=== PATIENT | female | born 1980 | race Caucasian/White ===

== ENCOUNTER → 2024-01-06 16:42 | Outpatient (REF) | payer OTHER, SELFPAY | LOC: WDC 16:42 | PROVIDERS: ATTENDING PHYSICIAN Obstetrics & Gynecology; FAMILY PHYSICIAN Family Medicine | DX: Z12.31 Encounter for screening mammogram for malignant neoplasm of breast (principal); Z80.3 Family history of malignant neoplasm of breast | CPT/HCPCS: 77063; 77067 ==

== ENCOUNTER → 2024-02-07 08:08 | Outpatient (REF) | payer OTHER, SELFPAY | LOC: WDC 08:08 | PROVIDERS: ATTENDING PHYSICIAN Obstetrics & Gynecology; FAMILY PHYSICIAN Family Medicine | DX: R92.2 Inconclusive mammogram (principal) | CPT/HCPCS: 76641 ==

== ENCOUNTER → 2025-05-03 08:48 | Outpatient (REF) | payer OTHER, SELFPAY | LOC: RAD 08:48 | PROVIDERS: ATTENDING PHYSICIAN Physician Assistant | DX: E83.52 Hypercalcemia (principal) | CPT/HCPCS: 76536; 78071; A9500 ==

== ENCOUNTER → 2025-05-18 15:09 | Outpatient (REF) | payer OTHER, SELFPAY | LOC: WDC 15:09 | PROVIDERS: ATTENDING PHYSICIAN Obstetrics & Gynecology; FAMILY PHYSICIAN Family Medicine | DX: Z12.31 Encounter for screening mammogram for malignant neoplasm of breast (principal) | CPT/HCPCS: 77063; 77067 ==

== ENCOUNTER → 2025-06-01 08:53 | Outpatient (REF) | payer OTHER, SELFPAY | LOC: RAD 08:53 | PROVIDERS: ATTENDING PHYSICIAN Physician Assistant; FAMILY PHYSICIAN Family Medicine | DX: E83.52 Hypercalcemia (principal); E34.9 Endocrine disorder, unspecified | CPT/HCPCS: 77080; 77081 ==

== ENCOUNTER → 2025-07-07 12:59 | Outpatient (REF) | payer OTHER, SELFPAY | LOC: WDC 12:59 | PROVIDERS: ATTENDING PHYSICIAN Obstetrics & Gynecology; FAMILY PHYSICIAN Family Medicine | DX: R92.30 Dense breasts, unspecified (principal) | CPT/HCPCS: 76641 ==

== ENCOUNTER 2025-08-17 06:17 | Day surgery (SDC) | payer OTHER, SELFPAY ==
[2025-08-05 11:40] LABS: Hematocrit 42.7 % (37.0-47.0); Hemoglobin 14.4 g/dL (12.0-16.0); Mean Corp Hgb Conc. 33.7 g/dL (33.0-37.0); Mean Corpuscular Volume 89.9 fL (81.0-99.0); Platelet Count 291 10^3/uL (130-400); Red Cell Dist. Width 12.2 % (11.5-14.5)
[2025-08-05 11:43] LABS: INR 0.98; PT 12.8 Sec (11.4-14.6)
[2025-08-05 11:44] LABS: APTT 28.5 Sec (23.4-35.0)
[2025-08-05 12:12] LABS: ALT (SGPT) 25 U/L (0-35); AST (SGOT) 28 U/L (14-36); Albumin 4.5 g/dl (3.5-5.0); Alkaline Phosphatase 92 U/L (38-126); Calcium 12.0 mg/dl (8.4-10.2); Carbon Dioxide 22 mmol/L (22-30); Chloride 103 mmol/L (98-107); Glucose 77 mg/dl (70-99); Potassium 5.1 mmol/L (3.5-5.1); Sodium 134 mmol/L (135-145); Total Protein 7.5 g/dl (6.3-8.2); eGFR > 60.00
[2025-08-05 12:20] LABS: Blood Urea Nitrogen 22 mg/dl (7-17)
[2025-08-05 13:11] VITALS: BMI 23.0
[2025-08-17] VITALS (12 sets, daily range): BP systolic 100–131; BP diastolic 61–87; BMI 23.0
[2025-08-17] MEDS: NORMOSOL-R/PLASMALYTE-A 1000 IV (13:22)
[2025-08-17] MEDS: NEURONTIN 300 MG PO (13:22)
[2025-08-17] MEDS: TYLENOL 1000 MG PO (13:22)
[2025-08-17] MEDS: HEPARIN 5000 UNITS SC (15:38)
[2025-08-17 17:10] LABS: Turbo PTH 1306 pg/ml (14.5-75.2)
[2025-08-17 18:00] LABS: Turbo PTH 43.2 pg/ml (14.5-75.2)
[2025-08-17] MEDS: DILAUDID 0.25 MG IV ×2 (18:34→18:57)
[2025-08-17] MEDS: ROXICODONE 5 MG PO (19:36)
[2025-08-17] MEDS: ZOFRAN 4 MG IV (19:37)
--- NOTE | 2025-08-17 20:27 | OR.RPT ---
Operative Report
Operative Report
Date of Operation: August 17, 2025 6:00PM
Preoperative Diagnosis: Parathyroid hyperparathyroidism - E210
Postoperative Diagnosis: Same
Surgeon: Johan Newton M.D.
Operation: Minimally Invasive Right Superior Parathyroidectomy - [id number]
Anesthesia: GET
Estimated Blood Loss: 5 cc
Drains: None
Specimen: Right upper neck nodule #1, rule out parathyroid adenoma
Right upper neck nodule #2, rule out thyroid tissue
Complications: None
Procedure:
The patient was taken to the operating room and placed in the usual supine position. After adequate general endotracheal anesthesia was established, the patient's neck was extended, prepped, and draped in the typical sterile fashion. A 4 cm
transcervical incision was made two fingerbreadths above the sternal notch. The skin incision was made with the #15 blade, and this was taken through the skin into the subcutaneous tissue. The underlying platysma muscle was divided, and subplatysmal
flaps were created superiorly to the thyroid cartilage and inferiorly to the sternal notch. Strap muscles were identified and at the midline.
Attention was turned to the patient's right side of the neck. The right thyroid lobe was mobilized medially. During this process, the right recurrent laryngeal nerve was identified and preserved throughout the surgery. The right upper neck nodule
was identified and noted to be enlarged, excised, and sent to the pathology department, which showed a hypercellular parathyroid gland. The normal-appearing right lower parathyroid gland was identified and preserved. The intraoperative PTH levels
normalized.
After obtaining adequate hemostasis, the strap muscles were reapproximated with #3-0 Vicryl in a running fashion. The platysma muscle was reapproximated with #3-0 Vicryl in an interrupted fashion, and the skin was approximated with #4-0 Monocryl in
a running subcuticular fashion. The Steri-Strips and sterile dressings were placed. The patient tolerated the procedure well. The final instrument, needle, and sponge counts were correct. The patient was extubated and transferred to the PACU.
== END 2025-08-17 20:10 | disposition home or self-care (01) ==
LOC: SDS 06:17
PROVIDERS: ATTENDING PHYSICIAN Surgery; FAMILY PHYSICIAN Family Medicine
DX: E21.3 Hyperparathyroidism, unspecified (principal)
CPT/HCPCS: 60500; 36415; 80053; 83970; 85027; 85610; 85730; 88305; 88331; 88342; 93005